=== PATIENT | male | born 1985 | race African-American/Black ===

== ENCOUNTER 2021-09-12 18:17 | Emergency (ER) | payer SELFPAY ==
--- OUTSIDE RECORDS SUMMARY | 2021-09-12 18:20 | XMS REPORT | Continuity of Care Document ---
:1985 Author Organization [facility] t Address [facility] [address] [place] [address] Care Team Providers Name Role Phone Radha Hernandes Attending Clinician Unavailable Haroon Tavera Attending Clinician Unavailable DR Cassius SAM Attending Clinician Unavailable DR Parrish OLEARY Attending Clinician Unavailable Physician, Primary or Family Admitting Clinician UnavailDR Cassius Armstrong Admitting Clinician Unavailable DR Parrish OLEARY Admitting Clinician Unavailable MR EMANI Admitting Clinician Unavailable Payers Payer Name Policy Type Policy Number Effective Date Expiration Date S ource Problems This patient has no known problems. Allergies, Adverse Reactions, Alerts Allergy Allergy Status Severity Reaction(s) Onset Inactive Treating Comm ents Source Name Type Date Date Clinician No Known DA Active U [facility] 03-07 [facility] s 00:00: d 00 [facility] No Known DA [facility] Medications This patient has no known medications. Procedures This patient has no known procedures. Encounters Start End Encounter Admission Attending Care Care Encounter Source Date/Time Date/Time Type Type Clinicians Facility Department ID 2021-03-09 2021-03-09 Emergency EM Cecilio TOÑA SABINE [id number] [facility] 14:35:00 17:08:00 Radha [id number] [facility] 2021-03-07 2021-03-07 Emergency EM Liang KEY TERS [id number] [facility] 10:47:00 11:52:00 Haroon [id number] [facility] 2019-06-24 2019-06-24 Emergency E CECY [facility] [id number] 17:50:00 19:02:00 [facility] Results Test Description Test Time Test Comments Results Result Comments Source DIRECT INFLUENZA A AND B DETECT 2017-02-09 02:11:00 Test Item Value Reference Range Interpretation Comme nts Direct Exam (test code = DE1) PRESUMPTIVE NEGATIVE FOR THE PRESENCE OF INFLUENZA ANTIGEN XR RIBS RIGHT UNIL 3VW W/PA [id number] 12:43:34Right rib series, 7 views.Location Code: D4 CLINICAL HISTORY: Injury, right rib pain.COMMENT: Frontal view of the chest shows the lungs to be clear with nopneumothorax, consolidation, or effusion. The cardiomediastinal silhouette isunremarkable. AP and oblique views of the right ribs demonstrate no displaced fracture. Thesoft tissues are unremarkable.IMPRESSION: No acute abnormality.XR FACIAL BONES COMPLETE 3 [id number] 12:42:28Facial bones, 3 viewsLocation code: [id number] history: Injury, right mandible painComment: PA, Harvey' view, and lateral views of the facial bones were obtained.There is no appreciable displaced fracture. The sinuses are well-aerated. Thesoft tissues are unremarkable.Impression: No acute radiographicabnormality .
[2021-09-12] MEDS ORDERED: ONDANSETRON 4 MG (ODT) TAB ONE (18:41)
--- NOTE | 2021-09-12 20:26 | ER ---
Nurse's Notes [facility] Name: Warren Yang Age: 36 yrs Sex: Male : 1985 Arrival Date: 09/12/2021 Time: 18:21 Bed 9 Private MD: Diagnosis: Cellulitis of the umbilicus Presentation: 09/12 18:28 Chief complaint: EMS states: Umbilical pain that for about 4-5 days; today pt noticed vg1 purulent drainage, denies blood. Pt states nausea. Pt is currently staying at [facility]. Coronavirus screen: Vaccine status: Patient reports being unvaccinated. Client denies travel out of the [place] in the last 14 days. Ebola Screen: Patient negative for fever greater than or equal to 101.5 degrees Fahrenheit, and additional compatible Ebola Virus Disease symptoms. Initial Sepsis Screen: Does the patient meet any 2 criteria? No. Patient's initial sepsis screen is negative. Does the patient have a suspected source of infection? No. Patient's initial sepsis screen is negative. Risk Assessment: Do you want to hurt yourself or someone else? Patient reports no desire to harm self or others. Onset of symptoms was September 12, 2021. 18:28 Method Of Arrival: EMS: [facility] vg1 18:28 Acuity: RENETTA 3 vg1 Triage Assessment: 18:33 General: Appears uncomfortable, Behavior is calm, cooperative. Pain: Complains of pain vg1 in umbilical area. GI: Abdomen is flat, Reports nausea. Historical: - Allergies: 18:33 No Known Allergies; vg1 - Home Meds: 18:33 Lisinopril Oral [Active]; hydroxyzine HCl Oral [Active]; escitalopram oxalate oral vg1 [Active]; - PMHx: 18:33 Anxiety; Depressive disorder; Hypertensive disorder; vg1 - PSHx: 18:33 None; vg1 - Immunization history:: Client reports having NOT received the Covid vaccine. - Social history:: Smoking status: Patient reports the use of cigarette tobacco products, smokes one-half pack cigarettes per day, Patient/guardian denies using alcohol. Screenin:54 Abuse screen: Denies threats or abuse. Nutritional screening: No deficits noted. bb Tuberculosis screening: No symptoms or risk factors identified. Fall Risk None identified. Assessment: 20:54 General: Appears in no apparent distress. Behavior is calm, cooperative. Neuro: Level bb of Consciousness is awake, alert, obeys commands, Oriented to person, place, time, situation. Cardiovascular: Capillary refill < 3 seconds Patient's skin is warm and dry. Respiratory: Respiratory effort is even, unlabored. 20:54 Reassessment: pt seen by this RN at discharge pt verbalized understanding of and agrees bb to plan of care discharge instructions given pt ambulated with steady gait to exit. Vital Signs: 18:28 BP 171 / 113; Pulse 71; Resp 16; Temp 98.0; Pulse Ox 100% ; Weight 86.18 kg; Height 5 vg1 ft. 8 in. (172.72 cm); Pain 9/10; 20:57 BP 164 / 99; Pulse 71; Resp 16 S; Temp 96.6(O); Pulse Ox 98% on R/A; bb 18:28 Body Mass Index 28.89 (86.18 kg, 172.72 cm) vg1 ED Course: 18:21 Patient arrived in ED. ds1 18:33 Triage completed. vg1 18:33 Arm band placed on. vg1 20:06 Vasu Rene PA is PHCP. [facility] 20:06 Davon Arambula MD is Attending Physician. [facility] 20:53 Melida Benavides, RN is Primary Nurse. bb 20:54 Patient has correct armband on for positive identification. bb 20:54 No provider procedures requiring assistance completed. Patient did not have IV access bb during this emergency room visit. Administered Medications: 18:39 Drug: Ondansetron 4 mg Route: PO; vg1 20:53 Follow up: Response: No adverse reaction bb 20:53 Drug: Doxycycline 100 mg Route: PO; bb 20:53 Follow up: Response: Medication administered at discharge. bb 20:53 Drug: Augmentin (Amoxicillin-Clavulanate) 875 mg Route: PO; bb 20:53 Follow up: Response: Medication administered at discharge. bb Outcome: 20:26 Discharge ordered by . jmm 20:54 Discharged to Rehab Facility bb 20:54 Condition: stable 20:54 Discharge instructions given to patient, Instructed on discharge instructions, follow up and referral plans. medication usage, Demonstrated understanding of instructions, follow-up care, medications, Prescriptions given X 3. 20:57 Patient left the ED. bb Signatures: Vasu Rene PA PA jmm Sanford, Demi ds1 Melida Benavides RN RN bb Juanita Barbour RN RN vg1
--- NOTE | 2021-09-12 20:26 | EDPHYS ---
Physician Documentation [facility] Name: Warren Yang Age: 36 yrs Sex: Male : 1985 Arrival Date: 09/12/2021 Time: 18:21 Bed 9 Private MD: ED Physician Davon Arambula HPI: 09/12 18:39 This 36 yrs old Black Male presents to ER via EMS with complaints of Abdominal Problem. jmm 18:39 the patient presents with a swollen area of the umbilical area. Onset: The jmm symptoms/episode began/occurred gradually, 4 day(s) ago. Possible cause(s): unknown. Associated signs and symptoms: Pertinent positives: discharge, drainage, erythema, Pertinent negatives: fever, swelling. Modifying factors: the symptoms are alleviated by nothing, the symptoms are aggravated by. This is a 36 year old male with a history of anxiety, depression, htn that presents to the ED with complaints of belly button drainage and pain worsening over the past 4 days. Drainage began today. Denies fever or chills. Denies recent surgery. . Historical: - Allergies: 18:33 No Known Allergies; vg1 - Home Meds: 18:33 Lisinopril Oral [Active]; hydroxyzine HCl Oral [Active]; escitalopram oxalate oral vg1 [Active]; - PMHx: 18:33 Anxiety; Depressive disorder; Hypertensive disorder; vg1 - PSHx: 18:33 None; vg1 - Immunization history:: Client reports having NOT received the Covid vaccine. - Social history:: Smoking status: Patient reports the use of cigarette tobacco products, smokes one-half pack cigarettes per day, Patient/guardian denies using alcohol. ROS: 18:39 Constitutional: Negative for fever, chills, and weight loss, Cardiovascular: Negative jmm for chest pain, palpitations, and edema, Respiratory: Negative for shortness of breath, cough, wheezing, and pleuritic chest pain. 18:39 Abdomen/GI: Positive for abdominal pain. 18:39 Skin: Positive for erythema. 18:39 All other systems are negative. Exam: 18:39 Constitutional: This is a well developed, well nourished patient who is awake, alert, jmm and in no acute distress. Head/Face: atraumatic. Eyes: EOMI, no conjunctival erythema appreciated ENT: Moist Mucus Membranes Neck: Trachea midline, Supple Chest/axilla: Normal chest wall appearance and motion. Cardiovascular: Regular rate and rhythm. No edema appreciated Respiratory: Normal respirations, no respiratory distress appreciated 18:39 Abdomen/GI: purulent drainage noted from the umbilicus, abdomen soft, non tender to palpation. 18:39 Back: pain, is absent. 18:39 Musculoskeletal/extremity: ROM: intact in all extremities. 18:39 Musculoskeletal/extremity: 18:39 Skin: Appearance: Color: normal in color, erythema noted to the umbilicus. 18:39 Neuro: Orientation: is normal, Mentation: is normal, Memory: is normal. 18:39 Psych: Behavior/mood is pleasant, cooperative. Vital Signs: 18:28 BP 171 / 113; Pulse 71; Resp 16; Temp 98.0; Pulse Ox 100% ; Weight 86.18 kg; Height 5 vg1 ft. 8 in. (172.72 cm); Pain 9/10; 20:57 BP 164 / 99; Pulse 71; Resp 16 S; Temp 96.6(O); Pulse Ox 98% on R/A; bb 18:28 Body Mass Index 28.89 (86.18 kg, 172.72 cm) vg1 MDM: 20:20 Patient medically screened. crispin 20:24 Data reviewed: vital signs, nurses notes. Counseling: I had a detailed discussion with crispin the patient and/or guardian regarding: the historical points, exam findings, and any diagnostic results supporting the discharge/admit diagnosis, the need for outpatient follow up, to return to the emergency department if symptoms worsen or persist or if there are any questions or concerns that arise at home. ED course: Patient is alert and non toxic in appearance in the ED. No signs of sepsis. Advised to follow up with pcp and otherwise given strict return precautions. Patient understood and agrees with the plan of care. . Administered Medications: 18:39 Drug: Ondansetron 4 mg Route: PO; vg1 20:53 Follow up: Response: No adverse reaction bb 20:53 Drug: Doxycycline 100 mg Route: PO; bb 20:53 Follow up: Response: Medication administered at discharge. bb 20:53 Drug: Augmentin (Amoxicillin-Clavulanate) 875 mg Route: PO; bb 20:53 Follow up: Response: Medication administered at discharge. bb Disposition: 09/13 03:39 Co-signature as Attending Physician, Davon Arambula MD. [email or web address] Disposition Summary: 09/12/21 20:26 Discharge Ordered Location: Home [facility] Condition: Stable [facility] Diagnosis - Cellulitis of the umbilicus [facility] Followup: [facility] - With: Private Physician - When: 2 - 3 days - Reason: Recheck today's complaints, Continuance of care, Re-evaluation by your physician Discharge Instructions: - Discharge Summary Sheet [facility] - Cellulitis, Adult [facility] Forms: - Medication Reconciliation Form [facility] - Thank You Letter [facility] - Antibiotic Education [facility] - Prescription Opioid Use [facility] Prescriptions: - mupirocin 2 % Topical ointment - apply 1 application by TOPICAL route 3 times per day; 1 tube; Refills: 0, [facility] Product Selection Permitted - Augmentin 875-125 mg Oral Tablet - take 1 tablet by ORAL route every 12 hours for 10 days; 20 tablet; Refills: 0, [facility] Product Selection Permitted - Doxycycline Hyclate 100 mg Oral Tablet - take 1 tablet by ORAL route every 12 hours; 20 tablet; Refills: 0, Product [facility] Selection Permitted Signatures: Vasu Rene PA PA jmm Ballard, Brenda RN RN Juanita Michael RN RN vg1 Davon Arambula MD MD mh7
[2021-09-12] MEDS ORDERED: AMOX/K CLAV 875 MG TAB ONE (20:48)
[2021-09-12] MEDS ORDERED: DOXYCYCLINE 100 MG CAP PO ONE (20:48)
[2021-09-12 21:23] VITALS: BP 164/99; TEMP 96.6; O2SAT 98
== END 2021-09-12 20:57 | disposition home or self-care (01) ==
LOC: ER 18:17
DX: L03.316 Cellulitis of umbilicus (principal); I10 Essential (primary) hypertension; F32.A Depression, unspecified; F17.210 Nicotine dependence, cigarettes, uncomplicated
CPT/HCPCS: 99283

== ENCOUNTER 2021-10-06 08:44 | Emergency (ER) | payer SELFPAY ==
--- OUTSIDE RECORDS SUMMARY | 2021-10-06 08:46 | XMS REPORT | Continuity of Care Document ---
:1985 Author Organization [facility] t Address [address] [place] [address] Care Team Providers Name Role Phone ERIN DUMAS Attending Clinician Unavailable Cecilio Attending Clinician Unavailable Claudette Tavera Attending Clinician Unavailable DR Cassius SAM [...] Date Clinician No Known DA Active U [facility] Allergie 03-07 [facility] s 00:00: d 00 [facility] No Known DA Active U [facility] Medications This patient has no known medications. Procedures This patient has no known procedures. Encounters Start End Encounter Admission Attending Care Care Encounter Source Date/Time Date/Time Type Type Clinicians Facility Department ID 2021-09-17 2021-09-18 Emergency FAVIOLA DE LEON [id number] [facility] 22:57:00 01:34:00 ERIN 2021-03-09 2021-03-09 Emergency EM TOÑA Hernandes SABINE [id number] -[id number] [facility] 14:35:00 17:08:00 Samsonmor [id number] [facility] 2021-03-07 2021-03-07 Emergency EM Liang, TROYCL TERRaghu [id number] -[id number] [facility] 10:47:00 11:52:00 Haroon [id number] [facility] 2019-06-24 2019-06-24 Emergency E CECY, [facility] [id number] 17:50:00 19:02:00 [facility] Results Test Description Test Time Test Comments Results Result Comments Source TSH, THIRD GENERATION 2021-10-01 08:37:09 Test Item Value Reference Range Interpretation Comme nts TSH, THIRD GENERATION (test 1.090 UIU/ML 0.400-4.100 UNLESS OTHERWISE code = 2821) INDICATED, ALL TESTING PERFORMED [facility], [address] [address] LABORATORY DIRE CTOR: RADHAMES JETT M.D. CLIA NUMBER [id number] CAP ACCREDITATION N O. [id number] CBC W/AUTO DIFF WITH [id number] 08:06:13 Test Item Value Reference Range Interpretation Comments WBC (test code = 5.2 K/UL 3.5-11.0 1001) RBC (test code = 5.15 M/UL 4.50-6.10 1002) HEMOGLOBIN (test code 14.4 G/DL 13.5-17.0 = 1003) HEMATOCRIT (test code 43.0 % 40.0-51.0 = 1004) MCV (test code = 83.5 fL 80.0-99.0 1005) MCH (test code = 28.0 PG 25.0-33.0 1006) MCHC (test code = 33.5 G/DL 31.0-36.0 1007) RDW (test code = 12.6 % 11.5-15.0 1038) NEUTROPHILS (test 55.5 % code = 1008) LYMPHOCYTES (test 34.7 % code = 1010) MONOCYTES (test code 7.3 % = 1011) EOSINOPHILS (test 1.7 % code = 1012) BASOPHILS (test code 0.6 % = 1013) IMMATURE GRANULOCYTES 0.2 % (test code = 1036) NUCLEATED RBCS (test 0.0 /100 See_Comment [Autom ated code = 1065) WBC'S message] The sy stem which generated this result transmitted reference range : 0.0. The refere nce range was not u sed to interpret th is result as normal/abnormal . PLATELET COUNT (test 273 K/UL 130-400 code = 1015) ABSOLUTE NEUTROPHILS 2.87 K/UL 1.50-7.50 (test code = 1066) ABSOLUTE LYMPHOCYTES 1.80 K/UL 1.00-4.00 (test code = 1067) ABSOLUTE MONOCYTES 0.38 K/UL 0.20-1.00 (test code = 1068) ABSOLUTE EOSINOPHILS 0.09 K/UL 0.00-0.50 (test code = 1040) ABSOLUTE BASOPHILS 0.03 K/UL 0.00-0.20 (test code = 1069) ABS IMMATURE 0.01 K/UL 0.00-0.10 GRANULOCYTES (test code = 1020) ABS NUCLEATED RBCS 0.00 K/UL 0.00-0.11 (test code = 77289) LIPID [id number] 06:34:24 Test Item Value Reference Range Interpretation Comments CHOLESTEROL (test 175 MG/DL <200 code = 2210) TRIGLYCERIDES (test 121 MG/DL <150 code = 2232) HDL CHOLESTEROL (test 64 MG/DL >39 code = 2220) CALC LDL CHOL (test 89 MG/DL <100 NOTE: C ALCULATED LDL code = 2237) IS BASED ON CHRIS-SAVAGE METHOD WHICHINCLUDES ADJUSTABLE TRIGLYCERIDE:VL DL CHOLESTEROL RAT IO.THIS FACTOR VARIES B Y MEASURED TRIGLY CERIDE AND NON-HDLCHOL ESTEROL CONCENTRATIONS WITH INCREASED CALCU LATED LDL SEENIN HIGH ER TRIGLYCERIDE OR LOWER NON-HDL SPECIME NS. FOR MOREINFORMATION , SEE CLIENT ANNOUNCE MENT AT [email or web address] RISK RATIO LDL/HDL 1.39 RATIO <3.55 (test code = 2238) COMPREHENSIVE METABOLIC [id number] 06:34:24 Test Item Value Reference Range Interpretation Comments GLUCOSE (test code = 91 MG/DL 70-99 2216) BUN (test code = 13 MG/DL 6-20 2207) CREATININE (test 0.80 MG/DL 0.80-1.40 code = 2214) eGFR (2020 CKD-EPI) 117 >60 (test code = 56156) ML/MIN/1.73 CALC BUN/CREAT (test 16 RATIO 6-28 code = 2235) SODIUM (test code = 143 MEQ/L 227-419 4800) POTASSIUM (test code 4.1 MEQ/L 3.5-5.4 = 2228) CHLORIDE (test code 105 MEQ/L 95-107 = 2215) CARBON DIOXIDE (test 27 MEQ/L 19-31 code = 2206) CALCIUM (test code = 9.1 MG/DL 8.5-10.5 2208) PROTEIN, TOTAL (test 6.7 G/DL 6.1-8.3 code = 2229) ALBUMIN (test code = 4.4 G/DL 3.5-5.2 220) CALC GLOBULIN (test 2.3 G/DL 1.9-3.7 code = 2240) CALC A/G RATIO (test 1.9 RATIO 1.0-2.6 code = 2234) BILIRUBIN, TOTAL <0.2 MG/DL See_Comment [Automated message] (test code = 2207) The [employer] which generated this result transmit glenda reference range : <=1.2. The refe rence range was not u sed to interpret th is result as normal/abnormal . ALKALINE PHOSPHATASE 78 U/L 40-117 (test code = 2204) AST (test code = 25 U/L 9-50 2217) ALT (test code = 43 U/L 5-50 2218) DIRECT INFLUENZA A AND B [id number] 02:11:00 Test Item Value Reference Range Interpretation Comments Direct Exam (test PRESUMPTIVE NEGATIVE FOR code = DE1) THE PRESENCE OF INFLUENZA ANTIGEN XR RIBS RIGHT UNIL 3VW W/PA [id number] 12:43:34Right rib series, 7 views.Location Code: D4 CLINICAL HISTORY: Injury, right rib pain.COMMENT: Frontal view of the chest shows the lungs to be clear with nopneumothorax, consolidation, or effusion. The cardiomediastinal silhouette isunremarkable. AP and oblique views of the right ribs demonstrate no displaced fracture. Thesoft tissues are unremarkable.IMPRESSION: No acute abnormality.XR FACIAL BONES COMPLETE 3 [id number] 12:42:28Facial bones, 3 viewsLocation code: [id number] history: Injury, right mandible painComment: PA, Harvey' view, and lateral views of the facial bones were obtained.There is no appreciable displaced fracture. The sinuses are well-aerated. Thesoft tissues are unremarkable.Impression: No acute radiographicabnormality .
[2021-10-06] MEDS ORDERED: METOCLOPRAMIDE 10 MG/2mL INJ ONE (09:09)
[2021-10-06] MEDS ORDERED: KETOROLAC 30 MG/ML INJ ONE (09:09)
[2021-10-06] MEDS ORDERED: NA CHLORIDE 0.9% 100 ML IV ONE (09:09)
[2021-10-06] MEDS ORDERED: NA CHLORIDE 0.9% 1,000 ML ONE (09:10)
--- NOTE | 2021-10-06 09:16 | RAD REPORT ---
EXAM DESCRIPTION: CT - Head Brain Wo Cont - 10/06/2021 9:10 am CLINICAL HISTORY: HEADACHE Headache, drowsiness COMPARISON: No comparisons TECHNIQUE: All CT scans are performed using dose optimization technique as appropriate and may inclu de automated exposure control or mA/KV adjustment according to patient size. FINDINGS: No intracranial hemorrhage, hydrocephalus or extra-axial fluid collection.No areas of brai n edema or evidence of midline shift. The paranasal sinuses and mastoids are clear. The calvarium is intact. IMPRESSION: No acute intracranial abnormality.
[2021-10-06 09:22] LABS: Absolute Lymphocytes (CBC) 1.8 K/uL (0.7-4.9); Hematocrit 42.9 % (39.6-49.0); Lymphocytes % 32.7 % (15.3-44.8); MPV 8.5 fL (7.6-11.3); RBC Red Blood Cell Count 5.21 M/uL (4.33-5.43)
[2021-10-06 09:39] LABS: BUN Blood Urea Nitrogen 14 mg/dL (7-18); Bicarbonate 34 mmol/L (21-32); Glucose Level 87 mg/dL (74-106); Potassium 4.2 mmol/L (3.5-5.1); Sodium Level 141 mmol/L (136-145)
--- NOTE | 2021-10-06 10:00 | ER ---
Nurse's Notes [facility] Name: Warren Yang Age: 36 yrs Sex: Male : 1985 Arrival Date: 10/06/2021 Time: 08:50 Bed 7 Private MD: Diagnosis: Essential (primary) hypertension Presentation: 10/06 08:50 Chief complaint: EMS states: PT from [facility], c/o high BP and headache, has hx of ph HTN, takes lisinopril which was recently increased from 20 to 40 mg, states that he did take his medicine this morning. Initial BP 190/100, other VS WNL, pt reports R sided headache / and 1 episode of vomiting [employer]. Coronavirus screen: Vaccine status: Patient reports being unvaccinated. Ebola Screen: No symptoms or risks identified at this time. Initial Sepsis Screen: Does the patient meet any 2 criteria? No. Patient's initial sepsis screen is negative. Does the patient have a suspected source of infection? No. Patient's initial sepsis screen is negative. Risk Assessment: Do you want to hurt yourself or someone else? Patient reports no desire to harm self or others. Onset of symptoms was October 06, 2021. 08:50 [facility] Of Ar[facility]: [facility] 08:50 Acuity: RENETTA 3 ph Triage Assessment: 08:56 General: Appears in no apparent distress. comfortable, well groomed, Behavior is calm, ph cooperative, appropriate for age, Denies fever, feeling ill. Pain: Complains of pain in right advent. Neuro: Level of Consciousness is awake, alert, obeys commands, Oriented to person, place, time, situation, Reports blurred vision headache in right parietal area, frontal area. Cardiovascular: Reports lightheadedness, nausea, vomiting, Denies chest pain, Capillary refill < 3 seconds in bilateral fingers Patient's skin is warm and dry. Rhythm is sinus rhythm. Respiratory: Airway is patent Respiratory effort is even, unlabored. GI: Reports vomiting, [employer], denies nausea at this time. Derm: Skin is intact, is healthy with good turgor, Skin is pink, warm \T\ dry. Musculoskeletal: Circulation, motion, and sensation intact. Range of motion: intact in all extremities. Historical: - Allergies: 08:54 No Known Allergies; ph - Home Meds: 08:54 escitalopram oxalate Oral [Active]; hydroxyzine HCl Oral [Active]; lisinopril 40 mg ph oral tab 1 tab once daily [Active]; - PMHx: 08:54 Anxiety; depressive disorder; Hypertensive disorder; ph - Immunization history:: Adult Immunizations unknown. - Social history:: Smoking status: Patient reports the use of cigarette tobacco products, 1 pack every 3 days. Screenin:55 Abuse screen: Denies threats or abuse. Denies injuries from another. Nutritional ph screening: No deficits noted. Tuberculosis screening: No symptoms or risk factors identified. Fall Risk None identified. Assessment: 08:58 General: SEE TRIAGE ASSESSMENT. ph 09:21 Reassessment: Patient appears in no apparent distress at this time. Patient and/or ph family updated on plan of care and expected duration. Pain level reassessed. Patient is alert, oriented x 3, equal unlabored respirations, skin warm/dry/pink. 10:11 Reassessment: Patient appears in no apparent distress at this time. Patient and/or ph family updated on plan of care and expected duration. Pain level reassessed. Patient is alert, oriented x 3, equal unlabored respirations, skin warm/dry/pink. D/C pending completion of IV fluids. 10:24 Reassessment: Patient appears in no apparent distress at this time. Patient and/or ph family updated on plan of care and expected duration. Pain level reassessed. Patient is alert, oriented x 3, equal unlabored respirations, skin warm/dry/pink. pt continues to c/o headache 01/22, verbal order received from Dr Voss for PO Tylenol, see MAR. Called [facility] and gave report to NELLY Cisneros, awaiting ride. Vital Signs: 08:50 BP 175 / 107; Pulse 65; Resp 18; Temp 97.5; Pulse Ox 100% on R/A; Weight 95.25 kg; ph Height 5 ft. 11 in. (180.34 cm); Pain 8/10; 09:20 BP 155 / 97; Pulse 58; Resp 18; Pulse Ox 100% on R/A; Pain 8/10; ph 10:11 BP 161 / 107; Pulse 56; Resp 18; Pulse Ox 98% on R/A; ph 10:39 BP 159 / 97; Pulse 58; Resp 18; Temp 97.9; Pulse Ox 99% on R/A; ph 08:50 Body Mass Index 29.29 (95.25 kg, 180.34 cm) ph ED Course: 08:50 Patient arrived in ED. ph 08:54 Triage completed. ph 08:55 Adele Voss MD is Attending Physician. ma2 08:55 Arm band placed on Patient placed in an exam room, on a stretcher, on monitor technician, ph on pulse oximetry. 08:55 Patient has correct armband on for positive identification. Bed in low position. Call ph light in reach. Side rails up X 1. monitoring coordinator on. Pulse ox on. NIBP on. Door closed. Noise minimized. Warm blanket given. 08:58 Inserted saline lock: 20 gauge in right antecubital area, using aseptic technique. ph Blood collected. 09:03 Irene Flynn, RN is Primary Nurse. ph 09:10 CT Head Brain wo Cont In Process Unspecified. EDMS 10:38 No provider procedures requiring assistance completed. IV discontinued, intact, ph bleeding controlled, No redness/swelling at site. Pressure dressing applied. Administered Medications: 09:20 Drug: NS 0.9% 1000 ml Route: IV; Rate: 1 bolus; Site: right antecubital; ph 10:39 Follow up: Response: No adverse reaction; IV Status: Completed infusion; IV Intake: ph 1000ml 09:20 Drug: Reglan (metoCLOPramide) 10 mg Route: IVP; Site: right antecubital; ph 10:39 Follow up: Response: No adverse reaction ph 09:20 Drug: Ketorolac 30 mg Route: IVP; Site: right antecubital; ph 10:39 Follow up: Response: No adverse reaction; Pain is decreased ph 10:24 Drug: Tylenol 1000 mg Route: PO; ph 10:39 Follow up: Response: No adverse reaction ph Intake: 10:39 IV: 1000ml; Total: 1000ml. ph Outcome: 10:00 Discharge ordered by . ma2 10:38 Discharged to Rehab Facility ph 10:38 Condition: good 10:38 Discharge instructions given to patient, Instructed on discharge instructions, follow up and referral plans. medication usage, Demonstrated understanding of instructions, follow-up care, medications. 10:40 Patient left the ED. ph Signatures: Dispatcher [employer] EDMS Irene Flynn, RN RN ph Adele Voss MD MD ma2
--- NOTE | 2021-10-06 10:01 | EDPHYS ---
Physician Documentation [facility] Name: Warren Yang Age: 36 yrs Sex: Male : 1985 Arrival Date: 10/06/2021 Time: 08:50 Bed 7 Private MD: ED Physician Adele Voss HPI: 10/06 09:10 This 36 yrs old Black Male presents to ER via EMS with complaints of High Blood ma2 Pressure. 09:10 36-year-old male history of hypertension, he is in rehab undergoing rehab from [facility] ma2 and marijuana, patient had episode of gradual headache for 4 hours, improved, was found to has blood pressure 170/110, he took his blood pressure medicine. Patient had similar headaches in the past, he gets migraine frequently. Described this headache is similar to his prior migraines.. Historical: - Allergies: 08:54 No Known Allergies; ph - Home Meds: 08:54 escitalopram oxalate Oral [Active]; hydroxyzine HCl Oral [Active]; lisinopril 40 mg ph oral tab 1 tab once daily [Active]; - PMHx: 08:54 Anxiety; depressive disorder; Hypertensive disorder; ph - Immunization history:: Adult Immunizations unknown. - Social history:: Smoking status: Patient reports the use of cigarette tobacco products, 1 pack every 3 days. ROS: 09:11 Constitutional: Negative for fever, chills, and weight loss. ma2 09:11 All other systems are negative. Exam: 09:11 Constitutional: This is a well developed, well nourished patient who is awake, alert, ma2 and in no acute distress. Head/Face: Normocephalic, atraumatic. Chest/axilla: Normal chest wall appearance and motion. Nontender with no deformity. No lesions are appreciated. Cardiovascular: Regular rate and rhythm with a normal S1 and S2. No gallops, murmurs, or rubs. Normal PMI, no JVD. No pulse deficits. Respiratory: Lungs have equal breath sounds bilaterally, clear to auscultation and percussion. No rales, rhonchi or wheezes noted. No increased work of breathing, no retractions or nasal flaring. Abdomen/GI: Soft, non-tender, with normal bowel sounds. No distension or tympany. No guarding or rebound. No evidence of tenderness throughout. MS/ Extremity: Pulses equal, no cyanosis. Neurovascular intact. Full, normal range of motion. Neuro: Awake and alert, GCS 15, oriented to person, place, time, and situation. Cranial nerves II-XII grossly intact. Motor strength 5/5 in all extremities. Sensory grossly intact. Cerebellar exam normal. Normal gait. Vital Signs: 08:50 BP 175 / 107; Pulse 65; Resp 18; Temp 97.5; Pulse Ox 100% on R/A; Weight 95.25 kg; ph Height 5 ft. 11 in. (180.34 cm); Pain 8/10; 09:20 BP 155 / 97; Pulse 58; Resp 18; Pulse Ox 100% on R/A; Pain 8/10; ph 10:11 BP 161 / 107; Pulse 56; Resp 18; Pulse Ox 98% on R/A; ph 10:39 BP 159 / 97; Pulse 58; Resp 18; Temp 97.9; Pulse Ox 99% on R/A; ph 08:50 Body Mass Index 29.29 (95.25 kg, 180.34 cm) ph MDM: 09:58 Differential diagnosis: Differential diagnoses include migraine, tension headache, ma2 essential hypertension, versus withdrawal symptoms. Blood patient has improved other vital sign within normal limits, lab work noncritical CT head normal. Data reviewed: vital signs, nurses notes. Counseling: I had a detailed discussion with the patient and/or guardian regarding: the historical points, exam findings, and any diagnostic results supporting the discharge/admit diagnosis, the presence of at least one elevated blood pressure reading (>120/80) during this emergency department visit, the need for outpatient follow up. Response to treatment: the patient's symptoms have resolved after treatment. 10:00 Patient medically screened. 10/06 09:03 Order name: Basic Metabolic Panel; Complete Time: :58 ri10/06 09:03 Order name: CBC with Diff; Complete Time: ri10/06 09:03 Order name: CT Head Brain wo Cont; Complete Time: :58 ri10/06 09:03 Order name: Cardiac monitoring; Complete Time: 09:04 ri10/06 09:03 Order name: EKG - Nurse/Tech; Complete Time: 09:15 ri10/06 09:03 Order name: IV Saline Lock; Complete Time: 09:04 2 10/06 09:03 Order name: Labs collected and sent; Complete Time: 09:04 2 10/06 09:03 Order name: O2 Per Protocol; Complete Time: 09:04 10/06 09:03 Order name: O2 Sat Monitoring; Complete Time: 09:04 ri2 Administered Medications: 09:20 Drug: NS 0.9% 1000 ml Route: IV; Rate: 1 bolus; Site: right antecubital; ph 10:39 Follow up: Response: No adverse reaction; IV Status: Completed infusion; IV Intake: ph 1000ml 09:20 Drug: Reglan (metoCLOPramide) 10 mg Route: IVP; Site: right antecubital; ph 10:39 Follow up: Response: No adverse reaction ph 09:20 Drug: Ketorolac 30 mg Route: IVP; Site: right antecubital; ph 10:39 Follow up: Response: No adverse reaction; Pain is decreased ph 10:24 Drug: Tylenol 1000 mg Route: PO; ph 10:39 Follow up: Response: No adverse reaction ph Disposition Summary: 10/06/21 10:00 Discharge Ordered Location: Home ma2 Condition: Stable ma2 Diagnosis - Essential (primary) hypertension ma2 Followup: ma2 - With: Private Physician - When: Tomorrow - Reason: If symptoms return, Continuance of care Discharge Instructions: - Discharge Summary Sheet ma2 - Hypertension, Adult ma2 Forms: - Medication Reconciliation Form ma2 - Thank You Letter ma2 - Antibiotic Education ma2 - Prescription Opioid Use ma2 Prescriptions: - Reglan 10 mg Oral Tablet - take 1 tablet by ORAL route every 6 hours . take 30 minutes before meals and at ri2 bedtime; 100 tablet; Refills: 0, Product Selection Permitted Signatures: Dispatcher [employer] Irene Arriaga RN RN ph Alzahri, Mohammad, MD MD ri2
[2021-10-06] MEDS ORDERED: ACETAMINOPHEN 500 MG TAB ONE (10:23)
[2021-10-06 10:49] VITALS: BP 159/97; TEMP 97.9; O2SAT 99
--- NOTE | 2021-10-08 07:38 | EKG ---
Test Date: 2021-10-06 Test Time: 09:14:12 Marketing Pr Intern: MO[place] MEASUREMENT RESULTS: Intervals: Rate: 61 [place]: 174 QRSD: 92 QT: 416 QTc: 418 [place]: P: 33 [place]: 174 QRS: 35 T: 33 INTERPRETIVE STATEMENTS: Normal sinus rhythm Normal ECG No previous ECG available for comparison Electronically Signed On 10-08-21 07:36:04 HVAC R TECH by Skip Vargas
== END 2021-10-06 10:40 | disposition home or self-care (01) ==
LOC: ER 08:44
DX: I10 Essential (primary) hypertension (principal); F32.A Depression, unspecified; F17.210 Nicotine dependence, cigarettes, uncomplicated
CPT/HCPCS: 36415; 70450; 80048; 85025; 93005; 96361; 96374; 96375; 99284; J2765; J7030